=== PATIENT | female | born 1970 ===

== ENCOUNTER 2017-05-31 12:46 | Emergency (ER) | payer MEDICAID, OTHER ==
[2017-05-31 12:56] VITALS: BP 155/86; PULSE 74; RESP 18; TEMP 97.6; O2SAT 99
--- NOTE | 2017-05-31 13:05 | ED PDOC ---
HPI: Eye Injury/Pain Time Seen by Provider: 05/31/17 12:54 Chief Complaint (Nursing): ENT Problem Chief Complaint (Provider): right eye redness History Per: Patient History/Exam Limitations: no limitations Onset/Duration Of Symptoms: Days (1) Current Symptoms Are (Timing): Still Present Associated Symptoms: denies: Pain, Decreased Vision, FB Sensation, Discharge From Eye Additional Complaint(s): Patient is a 47 y/o female presenting to the emergency department for right eye redness since this morning. Reports that she rubbed her eyes yesterday and that her eye became sore afterwards. Denies eye pain, discharge, changes in vision, wearing contacts or glasses, forceful coughing or vomiting, foreign body sensation, taking blood thinners, or other complaints. PCP: Dr. Thomas Past Medical History Reviewed: Historical Data, Nursing Documentation, Vital Signs Vital Signs: Last Vital Signs Temp 97.6 F 05/31/17 12:53 Pulse 74 05/31/17 12:53 Resp 18 05/31/17 12:53 BP 155/86 H 05/31/17 12:53 Pulse Ox 99 05/31/17 12:53 - Medical History PMH: HTN - Surgical History Surgical History: Hernia Repair Other surgeries: Fibroid removal, paraythyroid tumor removal - Family History Family History: States: No Known Family Hx - Living Arrangements Living Arrangements: With Family - Social History Current smoker - smoking cessation education provided: No Ex-Smoker (has not smoked in the last 12 months): No Alcohol: None Drugs: Denies - Home Medications Home Medications: Ambulatory Orders Medication Instructions Recorded Tobramycin [Tobrex] 5 ml TOP QID #1 bottle 05/31/17 - Allergies Allergies/Adverse Reactions: Allergies Allergy/AdvReac Type Severity Reaction Status Date / Time No Known Allergies Allergy Verified 05/31/17 12:53 Review of Systems ROS Statement: Except As Marked, All Systems Reviewed And Found Negative Eyes: Positive for: Redness (right eye). Negative for: Pain, Vision Change, Eyelid Inflammation, Other (foreign body sensation, eye discharge) Physical Exam - Reviewed Nursing Documentation Reviewed: Yes Vital Signs Reviewed: Yes - Physical Exam Appears: Positive for: Non-toxic, No Acute Distress Head Exam: Positive for: ATRAUMATIC, NORMAL INSPECTION, NORMOCEPHALIC Skin: Positive for: Normal Color, Warm, Dry Eye Exam: Positive for: EOMI, PERRL, Other (subconjunctival hemorrhage distal to iris of right eye, no gross foreign bodies). Negative for: Normal appearance , Periorbital swelling, Periorbital tenderness Cardiovascular/Chest: Positive for: Regular Rate, Rhythm Respiratory: Positive for: Normal Breath Sounds. Negative for: Accessory Muscle Use, Respiratory Distress Extremity: Positive for: Normal ROM Neurologic/Psych: Positive for: Alert, Oriented (x3) - ECG O2 Sat by Pulse Oximetry: 99 (RA) Pulse Ox Interpretation: Normal Medical Decision Making Medical Decision Making: Time: 12:55 Procedure Note: patient consented to eye examination procedure. Two drops of Tetracaine were administered to her right eye followed by an application of fluorescein strip stain. Right eye examined with blue light shows a small corneal abrasion at 6 o'clock. No foreign bodies noted. Procedure tolerated well by patient Upon provider reevaluation patient is medically stable, and requires no further treatment in the ED at this time. Patient will be discharged with Rx for antibiotic drops and Tylenol as needed for pain. Counseling was provided and all questions were answered regarding diagnosis and need for follow up with trestle mechanic. There is agreement to discharge plan. Clinical impression: Subconjunctival hemorrhage, corneal abrasion Scribe Attestation: Documented by Cherie Collier, acting as a scribe for ADIA Martin. Provider Scribe Attestation: All medical record entries made by the Scribe were at my direction and personally dictated by me. I have reviewed the chart and agree that the record accurately reflects my personal performance of the history, physical exam, medical decision making, and the department course for this patient. I have also personally directed, reviewed, and agree with the discharge instructions and disposition. Disposition - Clinical Impression Clinical Impression: Subconjunctival hemorrhage, Corneal abrasion - Patient ED Disposition Is Patient to be Admitted: No Counseled Patient/Family Regarding: Studies Performed, Diagnosis, Need For Followup, Rx Given - Disposition Referrals: Alonzo Villalobos MD [Staff Provider] - Disposition: Routine/Home Disposition Time: 13:03 Condition: STABLE Additional Instructions: Apply drops as directed. Tylenol or advil for pain. Follow up with employment specialist/program manager in 1-2 days. Prescriptions: Tobramycin [Tobrex] 5 ml TOP QID #1 bottle Instructions: Subconjunctival Hemorrhage (ED), Corneal Abrasion (ED) Forms: [facility] ([place])
== END 2017-05-31 13:35 | disposition home or self-care (01) ==
LOC: H.ER 12:46
DX: H11.31 Conjunctival hemorrhage, right eye (principal); I10 Essential (primary) hypertension